=== PATIENT | male | born 1955 | race Caucasian/White ===

== ENCOUNTER 2020-01-29 05:38 | Day surgery (SDC) | payer OTHER ==
[~2020-01-29] VITALS: Ht 185.4 cm; Wt 81.6 kg
[2020-01-29] VITALS (10 sets, daily range): BP systolic 100–117; BP diastolic 63–76
[~2020-01-29 05:38] MED LIST: ATOR40TA72 PO; LEVO75TA7 PO; LIDOcaine 1% (10mg/ml) 2ml vial ONE; cefazolin/dext.iso 2gm/100ml 100 ML IV ONE; famotidine 20mg tablet PO ONE; ringers solution, lacted 1,000 ML IV SCH
[2020-01-29] MEDS ORDERED: ASPI81TA52 PO (06:22)
[2020-01-29] MEDS ORDERED: HYDR-3964 PO (06:22)
[2020-01-29 06:33] LABS: BASOPHILS % (AUTO) 0.7 % (0-1); EOSINOPHILS # (AUTO) 0.1 X10'3 (0-0.9); EOSINOPHILS % (AUTO) 0.8 % (0-6); LYMPHOCYTES # (AUTO) 1.7 X10'3 (1.1-4.8); LYMPHOCYTES % (AUTO) 24.5 % (21-51); MEAN CORPUSCULAR HGB CONC 34.1 g/dL (33.0-36.5); MEAN PLATELET VOLUME 6.9 FL (7.4-10.4); MONOCYTES # (AUTO) 0.7 X10'3 (0-0.9); MONOCYTES % (AUTO) 10.1 % (2-12); NEUTROPHILS # (AUTO) 4.5 X10'3 (1.8-7.7); NEUTROPHILS % (AUTO) 63.9 % (42-75); PRE OP HEMATOCRIT 43.1 % (42.0-52.0); PRE OP HEMOGLOBIN 14.7 g/dL (14.0-17.9); PRE OP PLATELET COUNT 319 X10'3 (140-440); RED BLOOD COUNT 4.44 X10'6 (4.70-6.10); RED CELL DISTRIBUTION WIDTH 13.2 % (11.5-14.5)
[2020-01-29 06:46] LABS: ALBUMIN 3.6 G/DL (3.4-5.0); ALBUMIN/GLOBULIN RATIO 0.9 (1.1-1.5); ALKALINE PHOSPHATASE 97 IU/L (46-116); BLOOD UREA NITROGEN 24 MG/DL (7-18); BUN/CREATININE RATIO 23.8 (5.4-32.0); CALCIUM 8.9 MG/DL (8.5-10.1); CHLORIDE 105 MMOL/L (99-107); CREATININE 1.01 MG/DL (0.60-1.10); PRE OP ALT 68 U/L (30-65); PRE OP ANION GAP 2 (8-16); PRE OP AST 45 U/L (10-37); PRE OP BILIRUB, TOTAL 0.5 MG/DL (0.0-1.0); PRE OP GLUCOSE 86 MG/DL (70-104); PRE OP POTASSIUM 4.3 MMOL/L (3.4-5.1); PRE OP SODIUM 139 MMOL/L (135-145); TOTAL CARBON DIOXIDE 31.7 MMOL/L (24-32); TOTAL PROTEIN 7.6 G/DL (6.4-8.2); eGFR 75 ML/MIN
[2020-01-29] MEDS ORDERED: BUPIVAcaine/PF 2.5 mg/ml (0.25%) 30ml vial ONE (07:17)
[2020-01-29] MEDS ORDERED: cloNIDine hcl/PF 100mcg/ml inj ONE (08:04)
[2020-01-29] MEDS ORDERED: midazolam 2 mg/2 ml injection ONE (08:07)
[2020-01-29] MEDS ORDERED: fentaNYL/PF 50MCG/1 ML 2ML syringe ONE (08:07)
[2020-01-29] MEDS ORDERED: ROPIVAcaine 0.5% (5mg/ml) 30ml vial ONE (08:09)
[2020-01-29] MEDS ORDERED: propofol inj 20 ML IV ONE (08:09)
[2020-01-29] MEDS ORDERED: vancomycin 1,000mg inj ONE (09:11)
[2020-01-29] MEDS ORDERED: ringers solution, lacted 1,000 ML IV SCH (09:31)
[2020-01-29] MEDS ORDERED: meperidine/PF 25mg/ml syringe IV PRN ×3 (09:35)
[2020-01-29] MEDS ORDERED: proCHLORperazine 10 MG/2 ml inj IV PRN (09:35)
[2020-01-29] MEDS ORDERED: morphine 4 MG/ML inj SYRINge IV PRN (09:35)
[2020-01-29] MEDS ORDERED: ondansetron/PF 4mg/2ml inj IV PRN (09:35)
[2020-01-29] MEDS ORDERED: morphine 2 MG/ML inj. syringe IV PRN (09:35)
--- NOTE | 2020-01-29 09:50 | NUR ---
Received from OR via BED, accompanied by Anesthesiologist DR MANN- and report given by Anesthesiolgist. PATIENT A&OX4, DENIES PAIN, V/S WNL, NEUROVASCULAR CHECKS INTACT, 20G PIV RUE, SCD ON, SPLINT DRESSING TO LEFT ARM WITH SLING CDI
--- NOTE | 2020-01-29 11:10 | NUR ---
PATIENT A&OX4, DENIES PAIN, V/S WNL, NEUROVASCULAR CHECKS INTACT, 20G PIV RUE D/C, SCD OFF, SPLINT DRESSING TO LEFT ARM WITH SLING CDI. I HAVE REVIEWED D/C INSTRUCTIONS WITH PATIENT AND FAMILY AND THEY HAVE VERBALIZED UNDERSTANDING. PATIENT D/C HOME WITH ALL BELONGINGS AND FAMILY GAVE TRANSPORT HOME.
== END 2020-01-29 11:10 | disposition home or self-care (01) ==
LOC: PAS 05:38
PROVIDERS: ATTEND Orthopaedic Surgery Orthopaedic Trauma
DX: S52.022A Displaced fracture of olecranon process without intraarticular extension of left ulna, initial encounter for closed fracture (principal); I25.10 Atherosclerotic heart disease of native coronary artery without angina pectoris; I25.2 Old myocardial infarction; Z95.1 Presence of aortocoronary bypass graft; Z95.810 Presence of automatic (implantable) cardiac defibrillator; G89.18 Other acute postprocedural pain; Z79.899 Other long term (current) drug therapy; Z82.49 Family history of ischemic heart disease and other diseases of the circulatory system; V86.96XA Unspecified occupant of dirt bike or motor/cross bike injured in nontraffic accident, initial encounter; Y93.89 Activity, other specified; Y92.89 Other specified places as the place of occurrence of the external cause; Y99.8 Other external cause status
CPT/HCPCS: 24685; 36415; 64417; 73070; 76000; 80053; 85025; 93005; A6222; C1713; J0735; J2001; J2250; J2704; J3010; J3370; J3490; J7120; A4565; A4618; A6449; A7000; J2795